=== PATIENT | male | born 1935 | race African-American/Black ===

== ENCOUNTER 2017-11-02 18:05 | Emergency (ER) | payer MEDICARE ==
[2014-03-22 00:25] VITALS: BMI 29.4
[~2017-11-02 18:05] MED LIST: AMBIEN10 MG PO; BACTRIM DS TABL1 TAB PO; BENADRYL25 MG; GLUCOTROL 5 MG T5 MG PO; HYDROCODON-ACE1 EAC7 PO; HYDROCODONE-APA1 TAB; KENALOG 0.1 % 115 GM; PRILOSEC20 MG PO; PROSCAR5 MG PO; RAPAFLO8 MG PO; VALISONE 0.1 %15 GM TOPICAL
== END 2017-11-02 19:35 | disposition home or self-care (01) ==
LOC: D.ER 18:05
DX: K64.4 Residual hemorrhoidal skin tags (principal); E11.9 Type 2 diabetes mellitus without complications

== ENCOUNTER 2019-02-08 12:17 | Emergency (ER) | payer OTHER ==
[~2019-02-08] VITALS: Ht 185.4 cm; Wt 102.3 kg
[2019-02-08 12:20] VITALS: Ht 185.4 cm; Wt 102.3 kg
[2019-02-08 12:55] LABS: BASOPHILS 0.5 % (0-2); EOSINOPHILS 3.7 % (0-7); HEMATOCRIT 45.9 % (42.0-54.0); HEMOGLOBIN 15.9 g/dL (13.5-17.5); IMMATURE GRANULOCYTES 0.2 % (0-5); LYMPHOCYTES 47.6 % (15-50); MCH 31.1 pg (26.0-34.0); MCHC 34.6 g/dL (31.0-37.0); MCV 89.8 fL (80.0-100.0); MEAN PLATELET VOLUME 10.7 fL (7.4-10.4); MONOCYTES 5.8 % (2-11); NEUTROPHILS 42.2 % (40-80); PLATELET COUNT 180 10x3/uL (130-400); RBC 5.11 10x6/uL (4.20-6.10); RDW 14.1 % (11.5-14.5); WBC 5.7 10x3/uL (4.8-10.8)
[2019-02-08 13:13] LABS: ALBUMIN 3.8 g/dL (3.4-5.0); ALKALINE PHOSPHATASE 101 U/L (46-116); ALT (SGPT) 26 U/L (10-68); BILIRUBIN - TOTAL 0.56 mg/dL (0.2-1.3); CALC OSMOLALITY 279 mosm/kg (275-300); CALCIUM 8.9 mg/dL (8.5-10.1); CARBON DIOXIDE 26.8 mmol/L (21.0-32.0); CHLORIDE - SERUM 101 mmol/L (98-107); POTASSIUM - SERUM 3.9 mmol/L (3.5-5.1); PROTEIN - SERUM 8.3 g/dL (6.4-8.2); SODIUM 137 mmol/L (136-145); UREA NITROGEN 11 mg/dL (7-18); eGFR NON AFRICAN AMERICAN 76 mL/min (90-120)
[2019-02-08 13:14] LABS: GLUCOSE 219 mg/dL (74-106)
[2019-02-08 15:10] VITALS: BP 128/72
== END 2019-02-08 15:08 | disposition home or self-care (01) ==
LOC: D.ER 12:17
PROVIDERS: Emergency Medicine
DX: E11.65 Type 2 diabetes mellitus with hyperglycemia (principal)